=== PATIENT | female | born 1980 | race Two or more races ===

== ENCOUNTER → 2021-07-01 | Outpatient (CLI) | payer OTHER ==
[~2021-07-01] MED LIST: LIDOCAINE 1% Multi-Dose 20 ML VIAL. INJ ONE
--- NOTE | 2021-07-01 11:16 | RAD ---
EXAM: Ultrasound-guided core biopsy right breast. Ultrasound-guided core biopsy of an additional site in the right breast. Post clip placement mammogram of the right breast. HISTORY: Right breast suspicious hypoechoic masses. COMPARISON: Mammogram 11/07/2020. Ultrasound 06/05/2021. TECHNIQUE AND FINDINGS: The risks of the procedure were discussed and written and verbal consent was obtained. Sonographic evaluation of the right breast was performed, demonstrating the lesions of conc cristina. The lesions of concern are a 11:00 position 8 cm from the nipple hypoechoic mass and a 1:00 posi tion 5 cm from the nipple hypoechoic circumscribed mass. The skin was prepped and draped using sterile technique. To the 11:00 position breast mass was identified. Local anesthesia was provided with 1% lidocaine. A small skin incision was made and 4 14-gauge core biopsies were obtained from the lesion. Subsequently, an S-shaped biopsy clip was advance to the site of 11:00 biopsy. Attention was drawn to the mass at the 1:00 position. Local anesthesia was provided with 1 percent li docaine. A small skin incision was made and 3 14-gauge core biopsies were obtained. Subsequently, a coil-shaped biopsy clip was advanced to the site of the 1:00 biopsy. Full-field digital mammographic views of the right breast demonstrate the clips in expected positions . Compression was applied to the biopsy site until there was no evidence of bleeding. The tissue fragm ents were placed into a separately marked containers of 10% formalin solution and sent to pathology f or histologic analysis. The patient tolerated the procedure without immediate complication and was di scharged in stable condition. IMPRESSION: Successful ultrasound guided biopsy of 2 right breast masses and post-biopsy clip placements. Patholo gy is pending. Please refer to the separate report submitted by the Pathology Department for specimen findngs. Electronically signed by: Javi Mckay MD (07/01/2021 11:14 AM) [id number]
--- NOTE | 2021-07-02 15:08 | PATHOLOGY ---
[facility] Accession Number: [id number] . 01 Material submitted: . PART A: breast - RIGHT BREAST MASS 11 O'CLOCK 8CMFN 1.2CM. Modifiers: right, 11:00 PART B: breast - RIGHT BREAST MASS 1 O'CLOCK 5CMFN 2.3CM. Modifiers: right . 02 Diagnosis: A. Breast tissue, right breast mass 11:00, 8 cm from nipple needle biopsies: - Confluent dense stromal fibrosis. . B. Breast tissue, right breast mass 1:00, 5 cm from nipple needle biopsies: - Fibroadenoma, with focal moderate/florid ductal epithelial hyperplasia. ([facility] 07/02/2021) [facility] 07/02/2021 1448 Local . 02 Comment: There is no atypia or evidence of malignancy. . 02 Electronically signed: . Jonn Garza MD, Pathologist NPI- [id number] . 01 Gross description: . A. The specimen is received in formalin, labeled "Rebel Bingham, right breast 1100 8 cm FN". Received are 3 needle cores of fibrofatty tissue measuring 1.5 x 0.6 x 0.2 cm in aggregate dimensions. The specimen is submitted entirely in cassettes A1-A3. The specimen is collected at 0920 and placed into formalin at 0920 on 07/01/2021. The specimen is removed from formalin at 1840 on 07/01/2021. The total formalin fixation time is 9 hours and 20 minutes. . B. The specimen is received in formalin, labeled "Rebel Bingham, right breast 100 5 cm FN". Received are 3 needle cores of fibrofatty tissue measuring 1.3 x 0.6 x 0.2 cm in aggregate dimensions. The specimen is submitted entirely in cassettes B1-B3. The specimen is collected at 0935 and placed into formalin at 0935 on 07/01/2021. The specimen is removed from formalin at 1840 on 07/01/2021. The total formalin fixation time is 9 hours and 5 minutes. ([facility]; 07/01/2021) NRI/NRI 07/01/2021 1736 Local . 02 Pathologist provided ICD-10: N60.31, D24.1, N62 . 02 CPT . 776936, [id number] Specimen Comment: A courtesy copy of this report has been sent to [phone], [phone] Specimen Comment: [id number] Specimen Comment: Report sent to / DR CHICAS Performed at: 01 [facility] [address], [place] [id number] MD Mode Mo MD Phone: [phone] Performed at: 02 [facility] [address], [place] [id number] MD Jonn Garza MD Phone: [phone]
== END | disposition home or self-care (01) ==
LOC: US 08:17
PROVIDERS: ATTEND Nurse Practitioner Primary Care
DX: N63.11 Unspecified lump in the right breast, upper outer quadrant (principal); N63.12 Unspecified lump in the right breast, upper inner quadrant; D24.1 Benign neoplasm of right breast; R92.8 Other abnormal and inconclusive findings on diagnostic imaging of breast
CPT/HCPCS: 19083; 19084; 77065; A4648; C1819; J3490